=== PATIENT | female | born 1945 | race Caucasian/White ===

== ENCOUNTER 2020-11-29 09:47 | Inpatient (IN) | payer MEDICARE ==
[~2020-11-29] VITALS: Ht 157.5 cm; Wt 62.3 kg
[~2020-11-29 09:47] MED LIST: ASPI-630 PO; CRESTOR5 MG PO; EZET10TA20 PO; METO25TA4 PO; TRIA1TAB5 PO
[2020-11-29] MEDS ORDERED: IOHEXOL 300 MG/ML 75 ML VIAL. IV ONE (10:30)
[2020-11-29] MEDS ORDERED: CONTRAST GIVEN. MC PRN (10:30)
[2020-11-29 10:34] LABS: BASO % 0 % (0-3); EOS # 0.1 x10^3/uL (0.0-0.7); EOS % 1 % (0-3); HEMOGLOBIN 13.6 g/dL (12.0-15.5); LYMPH # 3.1 x10^3/uL (1.0-4.8); LYMPH % 54 % (24-48); MEAN CORPUSCULAR HEMOGLOBIN 31 pg (25-35); MEAN CORPUSCULAR HGB CONC 33 g/dL (31-37); MEAN CORPUSCULAR VOLUME 94 fL (79-100); MONO # 0.8 x10^3/uL (0.0-1.1); MONO % 15 % (0-9); NEUT # 1.7 x10^3uL (1.8-7.7); NEUT % 30 % (31-73); PLATELET COUNT 187 x10^3/uL (140-400); RED BLOOD COUNT 4.37 x10^6/uL (3.50-5.40); RED CELL DISTRIBUTION WIDTH 14.7 % (11.5-14.5); WHITE BLOOD COUNT 5.8 x10^3/uL (4.0-11.0)
[2020-11-29 10:39] LABS: CALCIUM 8.9 mg/dL (8.5-10.1); GFR 54.1; POTASSIUM 3.9 mmol/L (3.5-5.1)
[2020-11-29] MEDS ORDERED: IV RINGERS SOLUTION,LACTATED 1,000 ML IV SCH (10:45)
[2020-11-29 10:52] LABS: ALBUMIN 3.7 g/dL (3.4-5.0); ALBUMIN/GLOBULIN RATIO 1.3 (1.0-1.7); TOTAL BILIRUBIN 0.8 mg/dL (0.2-1.0); TOTAL PROTEIN 6.5 g/dL (6.4-8.2)
--- NOTE | 2020-11-29 11:01 | PHYS DOC ---
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 She had a witnessed fall while coming to the door. She had a positive Covid test as an outpatient earlier this week and her is hospitalized with Covid and heart failure at [facility]. EMS described that she had a period of decreased level of consciousness after her fall and then had an incontinent episode of stool/diarrhea. She reports that she has had diarrhea for a while now. She primarily complains of pain in her tailbone after her fall. She does describe night sweats recently, says she wakes up soaking in sweat. Reports having both shots of the moderna covid vaccine earlier this year. She estimates ~4 weeks ago for her 2nd shot. After speaking with Dr. Cabrera, her primary care doctor she reportedly had a an essentially normal CBC, but a lactate of 23 earlier this week. She also had a UA that was reassuring. Dr. Cabrera states that the patient and the patie nt's family would prefer transfer to [facility] if she requires admission, which she felt was likely. Review of Systems: Review of Systems: Constitutional: + Night sweats, chills Eyes: Denies change in visual acuity HENT: Denies nasal congestion or sore throat Respiratory: Denies cough or shortness of breath Cardiovascular: Denies chest pain or edema GI: + Diarrhea. Denies abdominal pain, nausea, vomiting. : Denies dysuria Musculoskeletal: Complains of tailbone pain, denies back pain Integument: Denies rash Neurologic: Denies headache, focal weakness or sensory changes Endocrine: Denies polyuria or polydipsia Lymphatic: Denies swollen glands Psychiatric: Denies depression or anxiety Family History: Family History: No pertinent family history Current Medications: Current Meds: Current Medications Medications (Trade) Dose Ordered Sig/Shabbir Start Time Stop Time Status Last Admin Dose Admin Info (Do NOT chart on this entry -- for MONITORING) 1 each PRN DAILY PRN 11/29/20 10:30 12/01/20 10:29 Iohexol (Omnipaque 300 Mg/ml) 75 ml 1X ONCE 11/29/20 10:30 11/29/20 10:31 DC Lactated Ringer's 1,000 ml @ 500 mls/hr Q2H 11/29/20 10:45 11/29/20 12:44 Allergies: Allergies: Allergies Coded Allergies Type Severity Reaction Last Updated Verified moxifloxacin Allergy Intermediate 05/11/14 Yes hydrocodone Allergy Unknown 05/11/14 Yes levofloxacin Allergy Unknown 05/11/14 Yes Physical Exam: PE: Constitutional: Appears unwell. Covered in diarrhea. [] HENT: No obvious evidence of trauma to the head, bilateral external ears normal, oropharynx moist, no oral exudates, nose normal. [] Eyes: PERRLA, EOMI, conjunctiva normal, no discharge. [] Neck: Arrives in c-collar. + Midline C-spine tenderness [] Cardiovascular:Heart rate regular rhythm, no murmur [] Lungs & Thorax: Bilateral breath sounds clear to auscultation. + Left lower chest wall tenderness to palpation [] Abdomen: + LUQ TTP. soft, no masses, no pulsatile masses. [] Skin: Warm, dry, no erythema, posterior maculopapular rash on back [] Back: No tenderness, no CVA tenderness. [] Extremities: Normal painless range of motion. No tenderness, no cyanosis, no clubbing, no edema. [] Neurologic: Alert and oriented to person place and month. Not to year., normal motor function, normal sensory function, no focal deficits noted. [] Current Patient Data: Labs: Laboratory Tests Test 11/29/20 10:15 White Blood Count 5.8 x10^3/uL (4.0-11.0) Red Blood Count 4.37 x10^6/uL (3.50-5.40) Hemoglobin 13.6 g/dL (12.0-15.5) Hematocrit 41.0 % (36.0-47.0) Mean Corpuscular Volume 94 fL (79-100) Mean Corpuscular Hemoglobin 31 pg (25-35) Mean Corpuscular Hemoglobin Concent 33 g/dL (31-37) Red Cell Distribution Width 14.7 % (11.5-14.5) H Platelet Count 187 x10^3/uL (140-400) Neutrophils (%) (Auto) 30 % (31-73) L Lymphocytes (%) (Auto) 54 % (24-48) H Monocytes (%) (Auto) 15 % (0-9) H Eosinophils (%) (Auto) 1 % (0-3) Basophils (%) (Auto) 0 % (0-3) Neutrophils # (Auto) 1.7 x10^3uL (1.8-7.7) L Lymphocytes # (Auto) 3.1 x10^3/uL (1.0-4.8) Monocytes # (Auto) 0.8 x10^3/uL (0.0-1.1) Eosinophils # (Auto) 0.1 x10^3/uL (0.0-0.7) Basophils # (Auto) 0.0 x10^3/uL (0.0-0.2) Sodium Level 139 mmol/L (136-145) Potassium Level 3.9 mmol/L (3.5-5.1) Chloride Level 103 mmol/L (98-107) Carbon Dioxide Level 25 mmol/L (21-32) Anion Gap 11 (6-14) Blood Urea Nitrogen 16 mg/dL (7-20) Creatinine 1.0 mg/dL (0.6-1.0) Estimated GFR (Cockcroft-Gault) 54.1 BUN/Creatinine Ratio 16 (6-20) Glucose Level 126 mg/dL (70-99) H Lactic Acid Level 1.7 mmol/L (0.4-2.0) Calcium Level 8.9 mg/dL (8.5-10.1) Total Bilirubin Pending Aspartate Amino Transferase (AST) Pending Alanine Aminotransferase (ALT) Pending Alkaline Phosphatase Pending Total Protein Pending Albumin Pending Albumin/Globulin Ratio Pending Vital Signs: Vital Signs Date Time Temp Pulse Resp B/P (MAP) Pulse Ox O2 Delivery O2 Flow Rate FiO2 11/29/20 10:31 98.1 78 18 154/43 94 Room Air EKG: EKG: Sinus rhythm. Rate 67. Normal axis. Normal intervals. Q waves in lead III. No ST elevations or depressions.[] Radiology/Procedures: Radiology/Procedures: CT head, neck, chest, abdomen, pelvis[] Impressions: MPRESSION: BRAIN: No evidence of acute intracranial abnormality. C-SPINE: No evidence of acute osseous abnormality involving the cervical spine. Multilevel degenerative findings as described. CHEST: No evidence of acute cardiopulmonary abnormality. ABDOMEN/PELVIS: No evidence of acute abdominopelvic abnormality. Electronically signed by: Armando Hull DO (11/29/2020 11:59 AM) [id number] Heart Score: C/O Chest Pain: N/A Risk Factors: Risk Factors: DM, Current or recent (<one month) smoker, HTN, HLP, family history of CAD, obesity. Risk Scores: Score 0 - 3: 2.5% MACE over next 6 weeks - Discharge Home Score 4 - 6: 20.3% MACE over next 6 weeks - Admit for Clinical Observation Score 7 - 10: 72.7% MACE over next 6 weeks - Early Invasive Strategies Course & Med Decision Making: Course & Med Decision Making Pertinent Labs and Imaging studies reviewed. (See chart for details) 75-year-old female with history of recent Covid positive test this week, neurosarcoidosis managed by a neurologist and binder roller at [facility] on Enbrel who presents with EMS after a welfare check. She had a witnessed fall and fecal incontinence. It is clear that she is not safe to return home to independent living at this time. On arrival she is afebrile with reassuring vital signs. Exam pertinent for some mild confusion, C-spine TTP, left chest wall tenderness, left upper quadrant tenderness. Given her fall and diffuse tenderness will obtain CT imaging, burton scan. Will obtain labs. After discussion with her primary care doctor, Dr. Cabrera, her family would prefer hospitalization at [facility] where her is presently an inpatient. Labs here with essentially normal CBC, with a lymphocytic predominance, mild AST transaminitis consistent with known Covid infection. Lactate was 1.7 today. Given 500 cc of LR here. Blood cultures are pending. Following CT imaging we'll plan on discussing transfer to [facility]. 11:00AM CT imaging negative for acute process/traumatic injury. 12:05 PM Discussed with transfer team at , they are checking COVID bed availability and will call back. 12:39 PM Unfortunately [facility] did not have Covid positive beds available. Discussed with Dr. Cabrera, who agrees to admit the patient for the time being to [facility] here in [place]. 12:57 PM Shakeel Disclaimer: Shakeel Disclaimer: This electronic medical record was generated, in whole or in part, using a voice recognition dictation system. Departure Departure: Impression: Primary Impression: COVID-19 Disposition: ADMITTED INPATIENT Admitting Physician: Colleen Fernandez Condition: STABLE Referrals: COLLEEN FERNANDEZ MD (PCP) SYLVESTER PLEITEZ MD Nov 29, 2020 11:01
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
--- NOTE | 2020-11-29 12:01 | RAD ---
EXAMINATION: CT CHEST+ABD+PELVIS W, CT HEAD AND C-SPINE WO CLINICAL HISTORY: Fall, AMS, covid positive TECHNIQUE: Serial axial images without IV contrast were obtained from the vertex to the foramen magnum. CT of the cervical spine without IV contrast. Spiral, high resolution axial images were obtained from the skull base to the cervicothoracic junction with sagittal and coronal planar reconstructions. CT of the chest performed with IV contrast, scanning from the thoracic inlet to the upper abdomen. CT of the abdomen and pelvis performed with IV contrast, scanning from just above the dome of the diaph ragm to the symphysis pubis. CT Dose Reduction Employed: One or more of the following individualized dose reduction techniques wer e utilized for this examination: 1. Automated exposure control 2. Adjustment of the mA and/or kV ac cording to patient size 3. Use of iterative reconstruction technique. COMPARISON: None FINDINGS: BRAIN: Acute Change: No evidence of an acute contusion or other acute parenchymal process. Hemorrhage: No evidence of acute intracranial hemorrhage. Mass Lesion/Mass Effect: No evidence of intracranial mass or extraaxial fluid collection. No signific ant mass effect. Chronic Change: Scattered patchy foci of hypoattenuation in the supratentorial white matter, nonspeci fic but likely represents mild microvascular ischemia. Atherosclerotic calcification of the anterior and posterior circulation. Parenchyma: Mild generalized volume loss. Ventricles: Ventricular enlargement concordant with degree of parenchymal volume loss. Paranasal Sinuses and Skull Base: Visualized paranasal sinuses clear. No evidence of acute calvarial fracture. C-SPINE: Alignment: Straightening of the normal cervical lordosis, likely positional. Osseous Structures: No evidence of acute fracture. Minimal C4-5 anterolisthesis, likely degenerative. Degenerative Changes: Multilevel degenerative disc disease greatest at C5-6 and to lesser extent C6-7 . Moderate to severe multilevel facet arthropathy and neural foraminal narrowing. No evidence of high -grade osseous spinal stenosis. Cervical Soft Tissues: No prevertebral soft tissue swelling. Postoperative changes in the right later al neck. Left carotid atherosclerotic calcification. Thyroid gland within normal limits. CHEST: Lung Parenchyma and Pleura: No consolidation. Mild curvilinear left basilar subsegmental atelectasis and/or scarring. Mild biapical scarring. Nonspecific 5-6 mm pleural-based/subpleural densities in the posterior lower lobes (series 4 images 66 and 59). No pleural effusion. Central airways are patent. Lower Neck, Mediastinum, and Heart: No mediastinal, hilar, or axillary lymphadenopathy. Mild arterial atherosclerotic calcification without aneurysm. Coronary atherosclerotic calcification, incompletely evaluated. Normal heart size. Bones and Soft Tissues: Multilevel degenerative changes in the thoracic spine. ABDOMEN/PELVIS: Biliary ductal prominence status post cholecystectomy. Liver, pancreas, spleen, and adrenal glands un remarkable. Subcentimeter hypoenhancing cortical foci in the bilateral kidneys, too small adequately characterize but likely benign. Mildly filled urinary bladder. Uterus not definitively visualized and likely surgically absent. No bowel dilation or definite wall thickening. Appendix not definitively visualized. Nondistended sto mach suboptimally evaluated. Arterial atherosclerotic calcification without aneurysm. Multilevel degenerative changes in the lumbar spine. IMPRESSION: BRAIN: No evidence of acute intracranial abnormality. C-SPINE: No evidence of acute osseous abnormality involving the cervical spine. Multilevel degenerative findings as described. CHEST: No evidence of acute cardiopulmonary abnormality. ABDOMEN/PELVIS: No evidence of acute abdominopelvic abnormality. Electronically signed by: Armando Hull DO (11/29/2020 11:59 AM) [id number]
[2020-11-29 19:07] VITALS: BP 156/71
[2020-11-29] MEDS ORDERED: ZOLPIDEM 5 MG TABLET. PO PRN (20:45)
[2020-11-29] MEDS: METOPROLOL TART IMMED RELEASE 25 MG TABLET. PO SCH (21:46)
[2020-11-29] MEDS ORDERED: TRIAMCINOLONE ACETONIDE 0.5% TOPICAL CREAM 15GM TUBE. TP PRN (22:30)
[2020-11-29 22:56] VITALS: BP 141/96
[2020-11-30] MEDS: EZETIMIBE 10 MG TABLET PO SCH (08:45)
[2020-11-30] MEDS: ASPIRIN CHEWABLE 81 MG TABLET. PO SCH (08:45)
[2020-11-30] MEDS: METOPROLOL TART IMMED RELEASE 25 MG TABLET. PO SCH ×2 (08:46→20:41)
[2020-11-30] MEDS ORDERED: TRIAMTERENE/HCTZ 75/50MG TABLET. PO SCH (09:00)
[2020-11-30] MEDS ORDERED: predniSONE 5 MG TABLET PO SCH (09:00)
[2020-11-30] MEDS ORDERED: AZITHROMYCIN 250 MG TABLET. PO ONE (11:00)
[2020-11-30 11:13] VITALS: BP 109/57
[2020-11-30 17:19] VITALS: BP 124/61
[2020-11-30 20:33] VITALS: BP 138/72
--- NOTE | 2020-11-30 22:02 | PN ---
SUBJECTIVE: A 75-year-old female who fell at home, had injured her head, possible COVID infection in the family. The patient is immunosuppressed, has COVID at . The patient is still very weak, tired, and run down. OBJECTIVE: VITAL SIGNS: Blood pressure 140/96, respiratory rate 18, pulse 79, afebrile, has a history of neurosarcoidosis. The patient is very lethargic and tired at the present time. Continues with low dose steroids as well as Zithromax and continue to monitor the patient. Breathing moura, the patient seems to be reasonably well with oxygen saturation of 97%, blood pressure 140/90, respiratory rate 18, pulse 80, afebrile. GENERAL: The patient is alert and oriented x3, but sedated. LUNGS: Diminished but clear. CARDIOVASCULAR: Stable. ABDOMEN: Soft, nontender. The patient continued to be monitored carefully, make further evaluation. CBC was unremarkable. Chemistries show slight elevation of sugar 127. Lactic acid down to 1.7, alkaline phosphatase stable at 133, BUN and creatinine normal. Did have increase in lymphocytes as well as monocytes consistent with possible infectious etiology. The patient otherwise continued to be monitored carefully here in the COVID room. She has a negative pressure and continues to be monitored carefully on that. IMPRESSION: Multiple falls with head injuries, mild concussion, neurosarcoidosis, respiratory infection, contact with SARS. PLAN: As above. Continue with present drug regimen. GABRIELLA DR: Cristina TID: [id number]
[2020-12-01] MEDS ORDERED: LACTOBACILLUS RHAMNOSUS GG 1 CAPSULE. PO SCH (09:00)
[2020-12-01] MEDS: EZETIMIBE 10 MG TABLET PO SCH (09:00)
[2020-12-01] MEDS: AZITHROMYCIN 250 MG TABLET. PO SCH (09:34)
[2020-12-01] MEDS: METOPROLOL TART IMMED RELEASE 25 MG TABLET. PO SCH ×2 (09:34→21:08)
[2020-12-01] MEDS: ASPIRIN CHEWABLE 81 MG TABLET. PO SCH (09:34)
[2020-12-01] MEDS: DEXAMETHASONE SOD PHOS 4 MG/ML VIAL. IVP SCH ×2 (09:35→21:08)
[2020-12-01 10:39] VITALS: BP 143/75
[2020-12-01] MEDS: ENOXAPARIN 40 MG/0.4 ML SYRINGE. SQ SCH (11:20)
[2020-12-01 19:20] VITALS: BP 136/73
[2020-12-01] MEDS: LORazepam 0.5 MG TABLET PO PRN (21:08)
--- NOTE | 2020-12-02 03:21 | PN ---
DATE: 12/01/2020 SUBJECTIVE: A 75-year-old female in with COVID-19. The patient also has neurosarcoidosis and has been undergoing chemotherapy or immunosuppressive therapy for that. She is being monitored for this as well as being patient under medications of Zithromax and IV steroids and breathing treatments appropriately. OBJECTIVE: VITAL SIGNS: Blood pressure 143/75, respiratory rate 20, pulse 80, afebrile. GENERAL: The patient feels a little bit better, but not much. LUNGS: Diminished but clear. CARDIOVASCULAR: Regular sinus rhythm. ABDOMEN: Soft, nontender. NEUROLOGIC: Intact. Patient otherwise continues to make good progress overall. IMPRESSION: Acute respiratory distress, COVID-19 pneumonia as well as neurosarcoidosis as a compounding problem with this young lady. PLAN: Continue on present drug regimen. AMANDA/NATASHA/NELY DR: AMANDA/maria m TID: [id number]
[2020-12-02] MEDS: ASPIRIN CHEWABLE 81 MG TABLET. PO SCH (08:26)
[2020-12-02] MEDS: AZITHROMYCIN 250 MG TABLET. PO SCH (08:26)
[2020-12-02] MEDS: METOPROLOL TART IMMED RELEASE 25 MG TABLET. PO SCH (08:26)
[2020-12-02] MEDS: EZETIMIBE 10 MG TABLET PO SCH (08:26)
[2020-12-02] MEDS: DEXAMETHASONE SOD PHOS 4 MG/ML VIAL. IVP SCH ×2 (08:27→20:37)
[2020-12-02] MEDS: ENOXAPARIN 40 MG/0.4 ML SYRINGE. SQ SCH (08:27)
[2020-12-02 08:37] VITALS: BP 185/79
[2020-12-02] MEDS: amLODIPine BESYLATE 5 MG TABLET PO SCH (09:00)
[2020-12-02 11:11] VITALS: BP 151/86
[2020-12-02 15:25] VITALS: BP 131/62
[2020-12-02 19:00] VITALS: BP 131/66
[2020-12-02] MEDS: LORazepam 0.5 MG TABLET PO PRN (20:34)
[2020-12-03 06:13] VITALS: BP 136/72
--- NOTE | 2020-12-03 07:34 | PN ---
SUBJECTIVE: The patient with COVID-19. The patient has a history of neurogenic sarcoidosis. The patient remains basically stable. Seems to be breathing okay, just very weak, tired, concerned about her , some mild coughing. OBJECTIVE: VITAL SIGNS: Blood pressure 130/62, respirations 16, pulse 50, afebrile, 96 is on room air nasal cannula not quite clear. GENERAL: The patient otherwise is alert and oriented. Speech fluent, spontaneous, appropriate. LUNGS: Diminished but clear. CARDIOVASCULAR: Bradycardic, otherwise unremarkable. ABDOMEN: Soft, nontender. No rebound or guarding. EXTREMITIES: No clubbing, cyanosis or edema. NEUROLOGIC: The patient is stable, generalized weakness, had been falling at home, but seems to be able to get some physical and occupational therapy, gaining some strength there. PLAN: We will continue to monitor her accordingly, breathing treatments, Zithromax, hopefully discharge to nursing facility care tomorrow. AMANDA/LYNNE/PARTH DR: Cristina TID: [id number]
[2020-12-03] MEDS: AZITHROMYCIN 250 MG TABLET. PO SCH (08:58)
[2020-12-03] MEDS: EZETIMIBE 10 MG TABLET PO SCH (08:58)
[2020-12-03] MEDS: ASPIRIN CHEWABLE 81 MG TABLET. PO SCH (08:58)
[2020-12-03] MEDS: amLODIPine BESYLATE 5 MG TABLET PO SCH (08:58)
[2020-12-03] MEDS: ENOXAPARIN 40 MG/0.4 ML SYRINGE. SQ SCH (08:59)
[2020-12-03] MEDS: DEXAMETHASONE SOD PHOS 4 MG/ML VIAL. IVP SCH (08:59)
[2020-12-03] MEDS ORDERED: METOPROLOL TART IMMED RELEASE 25 MG TABLET. PO SCH (09:00)
[2020-12-03 11:50] VITALS: BP 105/45
--- NOTE | 2020-12-03 21:57 | DS ---
DATE OF DISCHARGE: 12/03/2020 HOSPITAL COURSE: This is a 75-year-old female who came in with increased shortness of breath, has a history of sarcoidosis, neurological involvement. The patient is high risk. She has been on immunosuppressive therapy. She has been around other people with it and her positive test came back. Apparently, she had gotten weak and fallen a couple times at home, hitting her head, and possible mild concussion. CT scan itself was basically unremarkable; however, the patient made good progress during the rest of her hospitalization, she was on breathing treatments, Decadron and made good progress overall. Her strength increased with physical and occupational therapy and she will be discharged to a nursing facility for continued rehab care. The patient did have an increase in lymphocytes of 54 and monocytes of 15. Her hemoglobin and hematocrit were normal. Sodium 139, potassium 3.9, BUN and creatinine of 16 and 1. Blood sugar 126. The patient's CT scan was basically of her head was unremarkable. C-spine was showing no signs of abnormalities as well as her chest x-ray, no obvious abnormality noted. The patient is noted to have made good progress. Her last blood pressure 105/50, respiratory rate 16, pulse 50, afebrile; room air 97. The patient will be discharged to the [facility] for further rehabilitation and treatment there. IMPRESSION: Acute respiratory distress, COVID-19 pneumonia as well as neurosarcoidosis as well as compounding, underlying cofactor ____, essential hypertension, concussion secondary to fall at home and make further evaluation on her as indicated. AMANDA DR: AMANDA/maria m TID: [id number]
== END 2020-12-03 12:00 | DRG 177 ==
LOC: ER 09:47 → 1 SOUTH 13:01
PROVIDERS: ADMIT Family Medicine; ATTEND Family Medicine
DX: U07.1 COVID-19 (principal); J12.82 Pneumonia due to coronavirus disease 2019; S06.9X9A Unspecified intracranial injury with loss of consciousness of unspecified duration, initial encounter; D84.9 Immunodeficiency, unspecified; D86.89 Sarcoidosis of other sites; X58.XXXA Exposure to other specified factors, initial encounter; I10 Essential (primary) hypertension; R06.03 Acute respiratory distress; Y93.89 Activity, other specified; Y92.89 Other specified places as the place of occurrence of the external cause; Y99.8 Other external cause status
CPT/HCPCS: 36415; 70450; 71260; 72125; 74177; 80053; 83605; 85025; 87040; 93005; J1100; J1650; J7120; J7512; Q9967; 97530; 97535; 99285-25